=== PATIENT | male | born 1995 | race Caucasian/White ===

== ENCOUNTER 2017-05-06 12:34 | Emergency (ER) | payer BC ==
[2017-05-06 12:43] VITALS: RESP 18; TEMP 97.3; O2SAT 97
--- NOTE | 2017-05-06 13:54 | EDPHY ---
H & P Stated Complaint: +mono 1 month ago/luq abd pain since friday Time Seen by Provider: 05/06/17 13:09 HPI/ROS: CHIEF COMPLAINT: Left upper quadrant pain, history of mono HISTORY OF PRESENT ILLNESS: The patient presents to the ED with several days of left upper quadrant pain. The patient reportedly was diagnosed with mononucleosis 4 weeks ago. He was snowboarding over the weekend and did sustain some falls. He presents to the ED because he is concerned about the possibility of a splenic injury. The patient reports his pain in the left upper quadrant is worsened with palpation and movement. He denies any rib pain or difficulty breathing. The patient denies additional traumatic injury. The patient denies additional acute complaints. REVIEW OF SYSTEMS: A comprehensive 10 point review of systems is otherwise negative aside from elements mentioned in the history of present illness. Source: Patient Exam Limitations: No limitations - Personal History Current Tetanus/Diphtheria Vaccine: No - Medical/Surgical History Hx Asthma: No Hx Chronic Respiratory Disease: No Hx Diabetes: No Hx Cardiac Disease: No Hx Renal Disease: No Hx Cirrhosis: No Hx Alcoholism: No Hx HIV/AIDS: No Hx Splenectomy or Spleen Trauma: No Other PMH: mono/ kidney failure as child - Social History Smoking Status: Never smoked - Physical Exam Exam: General Appearance: Alert, no distress Head: Atraumatic Eyes: Pupils equal, round, reactive ENT, Mouth: No hemotympanum, no oral trauma Neck: Nontender, trachea midline Respiratory: No chest wall tenderness, no subcutaneous emphysema, lungs clear to auscultation bilaterally Cardiovascular: Regular rate and rhythm Abdomen: Tenderness to palpation noted in the left upper quadrant Skin: No lacerations, No abrasion Back: No midline T/L/S pain Extremities: Nontender, full range of motion Neurological: A&Ox3, normal motor function, normal sensory exam Constitutional: Initial Vital Signs Temperature (C) 36.3 C 05/06/17 12:39 Heart Rate 66 05/06/17 12:39 Respiratory Rate 18 05/06/17 12:39 Blood Pressure 124/66 H 05/06/17 12:39 O2 Sat (%) 97 05/06/17 12:39 O2 Delivery Mode Room Air Allergies/Adverse Reactions: No Known Allergies Allergy (Unverified 05/06/17 12:39) Home Medications: Medication Instructions Recorded NK [No Known Home Meds] 05/06/17 Medical Decision Making - Diagnostics Imaging Results: Imaging Impressions Abdomen CT 05/06/17 13:53 Impression: Normal CT abdomen and pelvis, with IV contrast. Results called and discussed with Olu Saba, on May 06, 2017 at 1532. ED Course/Re-evaluation: The patient presents the ED for evaluation of left upper quadrant pain in the setting of recent minor trauma and possible splenomegaly from mononucleosis. The patient was noted to be hemodynamically stable on arrival. The patient was noted to have tenderness in his left upper quadrant. He was taken for CT scan of the abdomen pelvis with IV contrast which demonstrates no evidence of a obvious splenic injury or splenomegaly. The patient has no respiratory symptoms. He has no obvious rash. He does not have an acute abdomen. The patient has been informed of the results of his CT scan. The patient will be instructed to return to the ED for markedly worsening symptoms or other concerns. Differential Diagnosis: Differential diagnosis considered includes splenic injury, retroperitoneal hematoma, intra-abdominal hemorrhage, chest wall contusion - Data Points Laboratory Results: 05/06/17 13:34 POC Hgb 16.7 gm/dL gm/dL (13.7-17.5) POC Hct 49 % % (40-51) POC Sodium 142 mEq/L mEq/L (135-145) POC Potassium 4.4 mEq/L mEq/L (3.3-5.0) POC Chloride 106 mEq/L mEq/L (97-110) POC BUN 17 mg/dL mg/dL (7-23) POC Creatinine 1.0 mg/dL mg/dL (0.7-1.3) POC Glucose 88 mg/dL mg/dL (70-100) Point of Care Test Results: 05/06/17 13:34 POC Sodium 142 POC Potassium 4.4 POC Chloride 106 POC BUN 17 POC Creatinine 1.0 POC Glucose 88 Departure - Departure Disposition: Home, Routine, Self-Care Clinical Impression: Abdominal contusion Condition: Good Instructions: Contusion in Adults (ED) Additional Instructions: 1. Tylenol as needed for pain. 2. Your CT scan demonstrates no evidence of an enlarged spleen, splenic injury or other acute abnormality. 3. Please return to the ED for markedly worsening symptoms, difficulty breathing or other concerns. Referrals: YOLANDA JOE [Other] - As per Instructions
[2017-05-06] MEDS ORDERED: IOPAMIDOL (ISOVUE-300) 100 ML BTL ONE (13:59)
[2017-05-06] MEDS ORDERED: ACETAMINOPHEN 325 MG TAB PO ONE (16:04)
[2017-05-06 16:09] VITALS: BP 131/78; PULSE 70
== END 2017-05-06 15:40 | disposition home or self-care (01) ==
DX: S30.1XXA Contusion of abdominal wall, initial encounter (principal); V00.311A Fall from snowboard, initial encounter; Y99.8 Other external cause status; Y93.23 Activity, snow (alpine) (downhill) skiing, snowboarding, sledding, tobogganing and snow tubing
CPT/HCPCS: 82947-QW; Q9967